=== PATIENT | female | born 1955 | race Caucasian/White ===

== ENCOUNTER 2021-10-04 14:45 | Outpatient (CLI) | payer MEDICAID ==
[2021-10-04 15:42] LABS: BASOPHILS % (AUTO) 0.4 % (0-1); EOSINOPHILS # (AUTO) 0.1 X10'3 (0-0.9); HEMATOCRIT 42.8 % (35.0-45.0); HEMOGLOBIN 14.3 g/dl (12.0-16.0); LYMPHOCYTES # (AUTO) 1.7 X10'3 (1.1-4.8); LYMPHOCYTES % (AUTO) 28.1 % (21-51); MEAN CORPUSCULAR HEMOGLOBIN 31.8 PG (27.0-31.0); MEAN CORPUSCULAR HGB CONC 33.5 g/dL (33.0-36.5); MEAN PLATELET VOLUME 8.8 FL (7.4-10.4); MONOCYTES # (AUTO) 0.6 X10'3 (0-0.9); MONOCYTES % (AUTO) 9.7 % (2-12); NEUTROPHILS # (AUTO) 3.7 X10'3 (1.8-7.7); NEUTROPHILS % (AUTO) 59.8 % (42-75); PLATELET COUNT 150 X10'3 (140-440); RED CELL DISTRIBUTION WIDTH 14.6 % (11.5-14.5); WHITE BLOOD COUNT 6.2 X10'3 (4.5-11.0)
[2021-10-04 15:50] LABS: ALBUMIN 2.4 G/DL (3.4-5.0); ANION GAP 6 (8-16); BLOOD UREA NITROGEN 16 MG/DL (7-18); BUN/CREATININE RATIO 23.2 (6.6-38.0); CALCIUM 8.5 MG/DL (8.5-10.1); CHLORIDE 103 MMOL/L (99-107); CREATININE 0.69 MG/DL (0.40-0.90); GLUCOSE 259 MG/DL (70-104); SODIUM 135 MMOL/L (135-145); TOTAL CARBON DIOXIDE 25.6 MMOL/L (24-32); eGFR 86 ML/MIN
[2021-10-04 15:54] LABS: APTT 28 SECONDS (22-32)
== END 2021-10-04 23:59 | disposition home or self-care (01) ==
LOC: LAB 14:45
PROVIDERS: ATTEND Thoracic Surgery (Cardiothoracic Vascular Surgery)
DX: K72.10 Chronic hepatic failure without coma (principal)
CPT/HCPCS: 36415; 80048; 85025; 85610; 85730

== ENCOUNTER 2021-11-03 08:17 | Day surgery (SDC) | payer MEDICAID ==
[~2021-11-03] VITALS: Ht 149.9 cm; Wt 50.3 kg
[2021-11-03] VITALS (22 sets, daily range): BP systolic 116–158; BP diastolic 56–87
[2021-11-03] MEDS ORDERED: METF-438 PO (08:56)
[2021-11-03] MEDS ORDERED: FLUOXETINE PO (08:56)
[2021-11-03] MEDS ORDERED: LISI20TA28 PO (08:56)
[2021-11-03] MEDS ORDERED: ELBA1TAB PO (08:56)
[2021-11-03] MEDS ORDERED: LORAZEPAM PO (08:56)
[2021-11-03 09:41] LABS: BASOPHILS % (AUTO) 0.6 % (0-1); EOSINOPHILS # (AUTO) 0.2 X10'3 (0-0.9); EOSINOPHILS % (AUTO) 2.5 % (0-6); HEMOGLOBIN 14.3 g/dl (12.0-16.0); LYMPHOCYTES # (AUTO) 1.9 X10'3 (1.1-4.8); LYMPHOCYTES % (AUTO) 23.2 % (21-51); MEAN CORPUSCULAR HEMOGLOBIN 31.6 PG (27.0-31.0); MEAN CORPUSCULAR HGB CONC 34.1 g/dL (33.0-36.5); MEAN CORPUSCULAR VOLUME 92.6 FL (78-98); MEAN PLATELET VOLUME 8.5 FL (7.4-10.4); MONOCYTES # (AUTO) 0.7 X10'3 (0-0.9); NEUTROPHILS # (AUTO) 5.5 X10'3 (1.8-7.7); NEUTROPHILS % (AUTO) 65.7 % (42-75); PLATELET COUNT 162 X10'3 (140-440); RED BLOOD COUNT 4.53 X10'6 (4.20-5.60); RED CELL DISTRIBUTION WIDTH 13.9 % (11.5-14.5); WHITE BLOOD COUNT 8.3 X10'3 (4.5-11.0)
[2021-11-03] MEDS ORDERED: LIDOcaine 1%/PF 5ML 10 MG/ML VIAL ONE (10:19)
[2021-11-03] MEDS ORDERED: fentaNYL/PF 50MCG/1 ML 2ML syringe ONE (10:48)
[2021-11-03] MEDS ORDERED: midazolam 1 mg/ML 2ml injection ONE (10:48)
[2021-11-03] MEDS ORDERED: gelatin sponge, absorbable (Gelfoam 12-7MM) sponge TP ONE (11:22)
[2021-11-03] MEDS ORDERED: HYDROcodone/acetaminophen 5mg/325mg tablet PO PRN (11:45)
== END 2021-11-03 15:03 | disposition home or self-care (01) ==
LOC: SSTAY O 08:17
PROVIDERS: ATTEND Radiology Vascular & Interventional Radiology
DX: R91.8 Other nonspecific abnormal finding of lung field (principal); F17.210 Nicotine dependence, cigarettes, uncomplicated; Z86.19 Personal history of other infectious and parasitic diseases
CPT/HCPCS: 32408; 36415; 71045; 85025; 99152; 99153; J2250; J3010; J3490; J7030; 77012; A4615

== ENCOUNTER 2022-10-03 06:56 | Inpatient (IN) | payer MEDICAID ==
[2022-09-25 11:09] LABS: BASOPHILS % (AUTO) 0.3 % (0-1); EOSINOPHILS # (AUTO) 0.1 X10'3 (0-0.9); EOSINOPHILS % (AUTO) 1.6 % (0-6); LYMPHOCYTES # (AUTO) 1.3 X10'3 (1.1-4.8); LYMPHOCYTES % (AUTO) 17.4 % (21-51); MEAN CORPUSCULAR HEMOGLOBIN 32.9 PG (27.0-31.0); MEAN CORPUSCULAR HGB CONC 33.6 g/dL (33.0-36.5); MEAN CORPUSCULAR VOLUME 97.9 FL (78-98); MONOCYTES # (AUTO) 0.6 X10'3 (0-0.9); MONOCYTES % (AUTO) 8.7 % (2-12); NEUTROPHILS # (AUTO) 5.3 X10'3 (1.8-7.7); PRE OP HEMATOCRIT 41.4 % (35.0-45.0); PRE OP HEMOGLOBIN 13.9 g/dL (12.0-16.0); PRE OP PLATELET COUNT 188 X10'3 (140-440); RED BLOOD COUNT 4.23 X10'6 (4.20-5.60); RED CELL DISTRIBUTION WIDTH 13.5 % (11.5-14.5)
[2022-09-25 11:28] LABS: ALBUMIN 2.8 G/DL (3.4-5.0); ALBUMIN/GLOBULIN RATIO 0.6 (1.1-1.5); ALKALINE PHOSPHATASE 126 IU/L (46-116); BLOOD UREA NITROGEN 17 MG/DL (7-18); BUN/CREATININE RATIO 28.8 (10.0-20.0); CALCIUM 8.6 MG/DL (8.5-10.1); CHLORIDE 101 MMOL/L (99-107); CREATININE 0.59 MG/DL (0.40-0.90); PRE OP ALT 15 U/L (30-65); PRE OP ANION GAP 8 (8-16); PRE OP AST 18 U/L (10-37); PRE OP BILIRUB, TOTAL 0.4 MG/DL (0.0-1.0); PRE OP POTASSIUM 4.4 MMOL/L (3.4-5.1); PRE OP SODIUM 133 MMOL/L (135-145); TOTAL CARBON DIOXIDE 23.7 MMOL/L (24-32); TOTAL PROTEIN 7.8 G/DL (6.4-8.2); eGFR > 90 ML/MIN
[2022-09-25 11:29] LABS: PRE OP GLUCOSE 216 MG/DL (70-104)
[2022-09-25 11:31] LABS: HEMOGLOBIN A1C 6.9 % (4.5-6.2)
[2022-10-03] VITALS (15 sets, daily range): BP systolic 86–174; BP diastolic 43–74
[~2022-10-03] VITALS: Ht 151.1 cm; Wt 50.3 kg
[~2022-10-03 06:56] MED LIST: BUPR1PAT TOP; CBD; FLUO-167 PO; LISI10TA27 PO; LORA-269 PO; METF-438 PO; albuterol 2.5 MG/3 ML nebule NEB ONE; cefazolin 2gm/D5W 100mL 100 ML IV ONE; famotidine 20mg tablet PO ONE; ringers solution, lacted 1,000 ML IV SCH; tranexamic acid 650mg tablet PO ONE; vancomycin/NS 1 GM in NS 250 ML IV ONE
[2022-10-03] MEDS ORDERED: ROPIVAcaine 0.5% (5mg/ml) 30ml vial ONE (08:59)
[2022-10-03] MEDS ORDERED: sevoflurane 250ml liquid IH ONE (09:58)
[2022-10-03] MEDS ORDERED: hydrALAZINE 20mg/ml inj. IV ONE (09:58)
[2022-10-03] MEDS ORDERED: fentaNYL/PF 50MCG/1 ML 2ML syringe ONE ×2 (09:58→11:05)
[2022-10-03] MEDS ORDERED: dexamethasone sod phosphate 10mg/ml inj ONE (09:58)
[2022-10-03] MEDS ORDERED: midazolam 1 mg/ML 2ml injection ONE (09:59)
[2022-10-03] MEDS ORDERED: LIDOcaine 2% (20mg/ml) 5ml vial ONE (09:59)
[2022-10-03] MEDS ORDERED: ondansetron/PF 4mg/2ml inj ONE (09:59)
[2022-10-03] MEDS ORDERED: propofol inj 20 ML IV ONE (09:59)
[2022-10-03] MEDS ORDERED: acetaminophen 1,000mg/100ml IV 0 ML IV ONE (10:38)
[2022-10-03] MEDS ORDERED: ePHEDrine 50MG/ML INJ. ONE (10:44)
[2022-10-03] MEDS ORDERED: labetalol 20mg/4ml (5mg/ml) syringe IV ONE (11:03)
[2022-10-03] MEDS ORDERED: hydrALAZINE 20mg/ml inj. IV PRN (11:10)
[2022-10-03] MEDS ORDERED: morphine 2 MG/ML inj. syringe IV PRN (11:10)
[2022-10-03] MEDS ORDERED: morphine 4 MG/ML inj SYRINge IV PRN (11:10)
[2022-10-03] MEDS ORDERED: fentaNYL/PF 50MCG/1 ML 2ML syringe IV PRN ×2 (11:10)
[2022-10-03] MEDS ORDERED: ROPIVAcaine 0.2% (10 MG/5 ML) BOLUS INJECTION INTERSCALE PRN (11:10)
[2022-10-03] MEDS ORDERED: ondansetron/PF 4mg/2ml inj IV PRN ×2 (11:10→12:20)
[2022-10-03] MEDS ORDERED: ringers solution, lacted 1,000 ML IV SCH (11:10)
[2022-10-03] MEDS ORDERED: ROPIVAcaine 0.2%/PF PUMP/bolus 545 ML INTERSCALE SCH (11:10)
[2022-10-03] MEDS ORDERED: labetalol 20mg/4ml (5mg/ml) syringe IV PRN (11:10)
--- NOTE | 2022-10-03 12:16 | NUR ---
Received from OR via HOSPITAL BED, accompanied by Anesthesiologist and report given by CAROLYN Anesthesiologist. PATIENT WAKING UP, NO S/S OF PAIN, V/S WNL, SCD ON , PIV 20G LEFT WRIST, DRESSING SHOULDER WRAP TO RIGHT SIDE C/D/I WITH ONQ AT 2ML/HR AND COLD POWDER PACK AND ARM SLING. Addendum: 10/03/22 at 1232 by Talib Singh RN Amended: Links added.
[2022-10-03] MEDS ORDERED: HYDROmorphone inj. 0.5 MG/0.5 ML DISP.SYRIN IV PRN (12:20)
[2022-10-03] MEDS ORDERED: acetaminophen 325mg tablet PO PRN (12:20)
[2022-10-03] MEDS: potassium cl 20mEq in 1/2 NS 1,000 ML IV SCH (12:20)
[2022-10-03] MEDS ORDERED: LORazepam 0.5 MG tablet PO PRN (12:20)
[2022-10-03] MEDS ORDERED: magnesium hydroxide 30ml (MOM) UD suspension PO PRN (12:20)
[2022-10-03] MEDS ORDERED: bisacodyl 10mg suppository rectal RC PRN (12:20)
[2022-10-03] MEDS ORDERED: naloxone 0.4 mg/ml inj IV PRN (12:20)
[2022-10-03] MEDS ORDERED: HYDROmorphone 1 mg/ml syringe IV PRN (12:20)
[2022-10-03] MEDS ORDERED: diphenhydrAMINE 25mg capsule PO PRN ×2 (12:20)
--- NOTE | 2022-10-03 12:56 | NUR ---
PATIENT HAS MET ALL CRITERIA FOR TRANSFER TO [facility]THO FLOOR. VSS. DRESSINGS INTACT. BED LOW, CALL LIGHT PRESENT AND 2 RAILS UP. RN PRESENT TO ACCEPT CARE OF PATIENT AND REPORT HAS BEEN CALLED. ALL QUESTIONS ANSWERED TO ACCEPTING RN. Addendum: 10/03/22 at 1257 by Talib Singh RN Amended: Links added.
[2022-10-03] MEDS: ceFAZolin/D5W- 1GM premix 50 ML IV SCH (16:16)
--- NOTE | 2022-10-03 18:36 | NUR ---
Report to [facility]
--- NOTE | 2022-10-03 18:45 | NUR ---
Patient in room [facility]TH[facility] 4011. I have received report from SLY Sands and had the opportunity to ask questions and assume patient care.
[2022-10-03] MEDS: acetaminophen 325mg tablet PO SCH ×2 (19:07→20:00)
[2022-10-03] MEDS ORDERED: vancomycin/NS 1 GM ADD-VANTAGE 250 ML IV SCH (20:00)
[2022-10-03] MEDS: metFORMIN 500mg tablet PO SCH (20:35)
[2022-10-03] MEDS: oxyCODONE IR 5mg (immed. release) tablet PO PRN (20:46)
[2022-10-03] MEDS ORDERED: sennosides 8.6mg tablet PO SCH (21:00)
[2022-10-04] MEDS: ceFAZolin/D5W- 1GM premix 50 ML IV SCH
[2022-10-04] MEDS: acetaminophen 325mg tablet PO SCH ×2 (01:58→06:40)
[2022-10-04 02:00] VITALS: BP 127/63
[2022-10-04] MEDS: oxyCODONE IR 5mg (immed. release) tablet PO PRN ×2 (03:36→07:52)
[2022-10-04] MEDS: potassium cl 20mEq in 1/2 NS 1,000 ML IV SCH ×2 (04:20)
[2022-10-04 06:00] VITALS: BP 104/57
[2022-10-04 06:48] LABS: ANION GAP 10 (8-16); BASOPHILS % (AUTO) 0.2 % (0-1); CHLORIDE 106 MMOL/L (99-107); EOSINOPHILS % (AUTO) 0.2 % (0-6); HEMATOCRIT 33.2 % (35.0-45.0); HEMOGLOBIN 11.3 g/dl (12.0-16.0); LYMPHOCYTES # (AUTO) 1.2 X10'3 (1.1-4.8); LYMPHOCYTES % (AUTO) 8.7 % (21-51); MEAN CORPUSCULAR VOLUME 97.1 FL (78-98); MEAN PLATELET VOLUME 7.7 FL (7.4-10.4); MONOCYTES # (AUTO) 1.4 X10'3 (0-0.9); MONOCYTES % (AUTO) 9.9 % (2-12); PLATELET COUNT 178 X10'3 (140-440); POTASSIUM 4.1 MMOL/L (3.5-5.1); RED BLOOD COUNT 3.42 X10'6 (4.20-5.60); RED CELL DISTRIBUTION WIDTH 13.2 % (11.5-14.5); SODIUM 140 MMOL/L (135-145); TOTAL CARBON DIOXIDE 23.6 MMOL/L (24-32); WHITE BLOOD COUNT 13.6 X10'3 (4.5-11.0)
--- NOTE | 2022-10-04 06:50 | NUR ---
Problems reprioritized. Patient report given, questions answered & plan of care reviewed with SLY Velasquez.
[2022-10-04] MEDS: metFORMIN 500mg tablet PO SCH (07:40)
[2022-10-04] MEDS ORDERED: lisinopril 10 MG tablet PO SCH (08:00)
[2022-10-04] MEDS ORDERED: FLUoxetine 20mg capsule PO SCH (08:00)
[2022-10-04] MEDS ORDERED: aspirin 325mg tablet PO SCH (08:30)
[2022-10-04] MEDS ORDERED: oxyCODONE IR 5mg (immed. release) tablet PO ONE (11:20)
--- NOTE | 2022-10-04 11:25 | NUR ---
Problems reprioritized. Patient report given, questions answered & plan of care reviewed with perry auguste.
--- NOTE | 2022-10-04 11:30 | NUR ---
resumed patient care from primary nurse. All charting already done. Agree with all assessments.
[2022-10-04 11:46] VITALS: BP 139/69
[2022-10-04] MEDS ORDERED: OXYC-658 PO (11:49)
--- NOTE | 2022-10-04 11:55 | NUR ---
I have reviewed and agree with documentation by Danna Elizondo LVN.
--- NOTE | 2022-10-04 12:00 | NUR ---
Patient discharged home today. All discharge instructions were explained and questions were answered. IV was removed and all belongings were gathered. Patient was helped getting dressed. Patient alert and appreciate for discharge. Patient wheeled downstairs and into the private vehicle of friend.
--- NOTE | 2022-10-04 13:24 | NUR ---
Joint surgery consult: Pt admit s/p R shoulder surgery this admit per EMR. Pt seen by MARJ for written/verbal high protein diet ed w/ RD contact information provided. MARJ encouraged pt to contact dietitian's office if further nutrition questions/concerns. Addendum: 10/04/22 at [address] Amended: Links added.
[2022-10-05] MEDS ORDERED: acetaminophen 325mg tablet PO PRN (12:20)
[2022-10-08] MEDS ORDERED: BUPRENORPHINE 10 MCG TOP SCH (12:20)
== END 2022-10-04 12:14 | disposition home or self-care (01) | DRG 322 ==
LOC: PAS IN 06:56 → ORTHO 4S 13:11
PROVIDERS: ADMIT Orthopaedic Surgery; ATTEND Orthopaedic Surgery
PROC: 0LS30ZZ Reposition Right Upper Arm Tendon, Open Approach (ICD-10-PCS; 2022-10-03)
PROC: 3E0T3BZ Introduction of Anesthetic Agent into Peripheral Nerves and Plexi, Percutaneous Approach (ICD-10-PCS; 2022-10-03)
PROC: 3E0T33Z Introduction of Anti-inflammatory into Peripheral Nerves and Plexi, Percutaneous Approach (ICD-10-PCS; 2022-10-03)
PROC: 0RRJ00Z Replacement of Right Shoulder Joint with Reverse Ball and Socket Synthetic Substitute, Open Approach (ICD-10-PCS; principal; 2022-10-03 09:58)
DX: S42.241P 4-part fracture of surgical neck of right humerus, subsequent encounter for fracture with malunion (principal); Z79.899 Other long term (current) drug therapy
CPT/HCPCS: 36415; 71046; 73020; 80051; 80053; 82948; 83036; 85025; 87081; 97110; 97161; 97530; A4565; A4618; A6258; A7000; C1776; G0378; J0131; J0360; J0690; J1100; J2250; J2405; J2704; J2795; J3010; J3370; J3480; J3490; J7120